=== PATIENT | male | born 1980 | race Caucasian/White ===

== ENCOUNTER 2022-02-01 15:08 | Emergency (ER) | payer MEDICARE ==
[~2022-02-01] VITALS: Ht 175.3 cm; Wt 101.2 kg
[~2022-02-01 15:08] MED LIST: Zithromax250 MG PO
[2022-02-01] MEDS ORDERED: PALI6TA (15:30)
== END 2022-02-01 17:13 | disposition home or self-care (01) ==
LOC: ER 15:08
DX: R20.2 Paresthesia of skin (principal); R20.0 Anesthesia of skin; M79.602 Pain in left arm; Z88.0 Allergy status to penicillin; Z79.899 Other long term (current) drug therapy
CPT/HCPCS: 73030